=== PATIENT | male | born 2000 | race Caucasian/White ===

== ENCOUNTER 2021-10-06 15:08 | Outpatient (CLI) | payer OTHER ==
--- NOTE | 2021-10-06 17:22 | MRI Report ---
PROCEDURE: Knee RT W/O INDICATIONS: RIGHT KNEE PAIN TECHNIQUE: Noncontrast sagittal PD fast spin echo and T2 fast spin echo with fat saturation, sagittal 3-D gradie nt sequence with fat saturation; coronal T1 spin echo and PD fast spin echo with fat saturation, and axial PD fast spin echo with fat saturation through the knee. COMPARISON: None. FINDINGS: Image quality: Excellent. Menisci: The medial and lateral menisci demonstrate normal morphology and internal signal. The meni scal root ligaments appear intact. Cruciate ligaments: The anterior and posterior cruciate ligaments appear intact. Medial structures: The medial collateral ligament appears intact. The posterior oblique ligament, s emimembranosus tendon insertions, and oblique popliteal ligament, and meniscocapsular junction appear intact. Visualized portions of the pes anserinus tendons appear normal. No abnormal bursal fluid. Lateral structures: The lateral collateral ligament, long and short heads of the biceps femoris tend on appear intact. The popliteus tendon appears normal; the popliteofibular ligament appears intact. The posterosuperior and anteroinferior popliteomeniscal fascicles appear intact. The arcuate and fa bellofibular ligaments appear intact, around the lateral inferior geniculate artery. Iliotibial band appears normal. Anterior structures: Tendinosis and low-grade intrasubstance partial thickness tear involving distal quadriceps tendon at its superior patella insertion is seen. Patellar tendon is intact. Patellar alig nment is normal. No femoral trochlear dysplasia or ventral trochlear prominence. No edema in the in frapatellar fat pad. Bones and cartilage: No bone marrow contusions or fractures. The cartilage of the medial and latera l femorotibial compartments, as well as the patellofemoral compartment, appears normal in thickness. Joint space: There is physiologic knee joint fluid. No Lau's cyst. Normal appearing synovial pli are incidentally noted. IMPRESSION: 1. Cruciate ligaments are intact. Medial and lateral collateral ligaments are intact. 2. No evidence of focal meniscal tear. 3. Suggestion of distal quadriceps tendinosis at its superior patella insertion. Patellar tendon is i ntact. 4. No marrow edema. No fracture or dislocation. Articulating cartilages are intact. Reviewed by: Bola Gomes MD on 10/06/2021 5:21 PM PST Approved by: Bola Gomes MD on 10/06/2021 5:21 PM PST Station ID: [id number]
== END 2021-10-06 15:09 | disposition home or self-care (01) ==
LOC: DI 15:08
PROVIDERS: ATTEND Student in an Organized Health Care Education/Training Program
DX: M25.561 Pain in right knee (principal)

== ENCOUNTER 2022-08-24 08:00 | Outpatient (CLI) | payer OTHER ==
--- NOTE | 2022-08-24 12:53 | XRAY Report ---
PROCEDURE: Knee 4 View RT INDICATIONS: RIGHT KNEE PAIN TECHNIQUE: 4 views of the right knee, one view of the left knee COMPARISON: None FINDINGS: Bones: No acute fracture or dislocation. No significant degenerative changes. Quadriceps insertional enthesopathy. Cortically based sclerotic lesion seen in the proximal posterior medial tibia. Soft tissues: Small joint effusion. IMPRESSION: No acute radiographic abnormality. Quadriceps insertional enthesopathy and a small joint effusion are present. Cortically based sclerotic lesion in the posteromedial tibia, possibly an old NOF, likely benign assuming patient does not have a primary malignancy history. If there is high concern for internal derangement, consider MRI. Reviewed by: Josesito Javier MD on 08/24/2022 12:52 PM PDT Approved by: Josesito Javier MD on 08/24/2022 12:52 PM PDT Station ID: [id number]
== END 2022-08-24 23:59 | disposition home or self-care (01) ==
LOC: DI.WOS 08:00
PROVIDERS: ATTEND Physician Assistant
DX: M76.891 Other specified enthesopathies of right lower limb, excluding foot (principal); M25.461 Effusion, right knee; M89.9 Disorder of bone, unspecified; M25.561 Pain in right knee